=== PATIENT | female | born 1995 | race Asian ===

== ENCOUNTER 2017-11-07 20:20 | Emergency (ER) | payer MEDICAID ==
[~2017-11-07] VITALS: Ht 160 cm; Wt 71.7 kg
[2017-11-07 21:06] VITALS: Ht 160 cm; Wt 71.7 kg
[2017-11-07 23:48] VITALS: BP 129/72
== END 2017-11-07 23:48 | disposition home or self-care (01) ==
LOC: ED 20:20
DX: S69.92XA Unspecified injury of left wrist, hand and finger(s), initial encounter (principal); W50.1XXA Accidental kick by another person, initial encounter; Y93.89 Activity, other specified; Y99.8 Other external cause status; Y92.89 Other specified places as the place of occurrence of the external cause